=== PATIENT | female | born 1925 | race Caucasian/White ===

== ENCOUNTER 2016-07-08 19:29 | Inpatient (IN) | payer OTHER, BC ==
[~2016-07-08] VITALS: Ht 157.5 cm; Wt 42.9 kg
[~2016-07-08 19:29] MED LIST: ADULT LOW DOSE81 M1 PO; ARICEPT10 MG PO; Aricept PO; LASIX20 MG PO; LEXAPRO10 MG PO; Lovenox SC; MULTIVITAMIN1 EAC1 PO; Percocet 5/325,Endoc PO; THERAGRAN1 TABLET PO; Vicodin,Norco 5/325 PO; ZESTRIL,PRINIVI10 M1 PO; ZESTRIL,PRINIVI10 MG PO
[2016-07-08 22:07] LABS: HEMATOCRIT 28.5 % (36.0-46.0); MCH 32.2 PG (29.0-34.0); MCHC 31.2 G/DL (30.0-36.0); MCV 103.3 FL (83-99); MEAN PLAT.VOLUME 11.6 uM^3 (9.5-12.4); PLATELET COUNT 390 K/uL (156-360); RBC DIS.WIDTH-CV 26.1 % (11.8-14.6); RBC DIS.WIDTH-SD 90.8 % (39-53); RED BLOOD COUNT 2.76 M/uL (3.80-5.20); WHITE BLOOD COUNT 19.1 K/uL (4.1-10.2)
[2016-07-08 22:19] LABS: CHLORIDE 109 mEq/L (99-109); POTASSIUM 4.6 mEq/L (3.7-5.4); SODIUM 143 mEq/L (136-147)
[2016-07-08 22:20] LABS: GLUCOSE 172 mg/dL (70-99)
[2016-07-08 22:22] LABS: ANION GAP 8 MEQ/L (2-14)
[2016-07-08 22:24] LABS: GFR ESTIMATE (CALCULATED) > 59 mL/min/
[2016-07-08 22:25] LABS: UREA NITROGEN (BUN) 16 mg/dL (9-23)
[2016-07-08] MEDS ORDERED: LISINOPRIL5 MG PO (22:39)
[2016-07-08] MEDS ORDERED: LEXAPRO10 MG PO ×2 (22:40→22:41)
[2016-07-09] VITALS (11 sets, daily range): BP systolic 115–154; BP diastolic 47–70
[2016-07-09 05:14] LABS: ADD MIUA? YES; BILIRUBIN NEGATIVE; BLOOD MODERATE; COLOR AMBER ((YELLOW)); GLUCOSE (STRIP) NEGATIVE; KETONES NEGATIVE; LEUKOCYTES MODERATE; NITRITE POSITIVE; PROTEIN (STRIP) NEGATIVE; SPECIFIC GRAVITY 1.018 (1.000-1.030); UROBILINOGEN 0.2 MG/DL (0.2-1.0)
[2016-07-09 05:37] LABS: BACTERIA 2+ /HPF; EPITHELIAL CELLS RARE /HPF; MUCUS 2+ /LPF; RED BLOOD CELLS 20-30 /HPF (0-5); UCUL ADDED? YES; WHITE BLOOD CELLS TNTC /HPF (0-5)
[2016-07-09 06:53] LABS: HEMATOCRIT 28.6 % (36.0-46.0); MCH 31.3 PG (29.0-34.0); MCHC 30.4 G/DL (30.0-36.0); MCV 102.9 FL (83-99); MEAN PLAT.VOLUME 11.7 uM^3 (9.5-12.4); PLATELET COUNT 409 K/uL (156-360); RBC DIS.WIDTH-CV 26.6 % (11.8-14.6); RBC DIS.WIDTH-SD 96.1 % (39-53); RED BLOOD COUNT 2.78 M/uL (3.80-5.20)
[2016-07-09 06:54] LABS: WHITE BLOOD COUNT 12.8 K/uL (4.1-10.2)
[2016-07-09 07:01] LABS: METH RESISTANT S AUREUS PCR NEGATIVE (NEGATIVE)
[2016-07-09 07:02] LABS: PROBE CHECK PASS; SPECIMEN PROCESSING CONTROL PASS
[2016-07-10] VITALS (8 sets, daily range): BP systolic 102–131; BP diastolic 52–89
[2016-07-10 06:49] LABS: HEMATOCRIT 31.3 % (36.0-46.0)
[2016-07-10 06:51] LABS: HEM NON-PRINT COM 1 TRANSFUSED; MCV 93.7 FL (83-99)
[2016-07-10 06:58] LABS: ANION GAP 6 MEQ/L (2-14); CHLORIDE 107 MEQ/L (99-109); GFR ESTIMATE (CALCULATED) > 59 mL/min/; POTASSIUM 4.5 MEQ/L (3.7-5.4); SAMPLE HEMOLYSIS CHECK 0; SAMPLE ICTERIC CHECK 0; SAMPLE LIPEMIA CHECK 0; SODIUM 140 MEQ/L (136-147); UREA NITROGEN (BUN) 24 mg/dL (9-23)
[2016-07-10 07:15] LABS: GLUCOSE 91 mg/dL (70-99)
[2016-07-11 04:08] VITALS: BP 106/64
[2016-07-11 05:13] LABS: HEMATOCRIT 27.9 % (36.0-46.0); MCH 30.8 PG (29.0-34.0); MCHC 32.3 G/DL (30.0-36.0); MCV 95.5 FL (83-99); RBC DIS.WIDTH-CV 24.1 % (11.8-14.6); RBC DIS.WIDTH-SD 78.1 % (39-53); RED BLOOD COUNT 2.92 M/uL (3.80-5.20); WHITE BLOOD COUNT 10.8 K/uL (4.1-10.2)
[2016-07-11 05:50] LABS: ANION GAP 9 MEQ/L (2-14); CHLORIDE 107 MEQ/L (99-109); GFR ESTIMATE (CALCULATED) > 59 mL/min/; POTASSIUM 4.5 MEQ/L (3.7-5.4); SAMPLE HEMOLYSIS CHECK 0; SAMPLE ICTERIC CHECK 0; SAMPLE LIPEMIA CHECK 0; SODIUM 142 MEQ/L (136-147); UREA NITROGEN (BUN) 25 mg/dL (9-23)
[2016-07-11 05:51] LABS: GLUCOSE 165 mg/dL (70-99)
[2016-07-11 07:33] VITALS: BP 113/53
[2016-07-11 09:37] LABS: MEAN PLAT.VOLUME 11.8 uM^3 (9.5-12.4)
[2016-07-11 09:38] LABS: PLATELET COUNT 230 K/uL (156-360)
[2016-07-11 10:59] VITALS: BP 118/78
[2016-07-11 16:25] VITALS: BP 123/53
[2016-07-11 20:15] VITALS: BP 121/5; BP 121/58
[2016-07-11 23:50] VITALS: BP 112/60
[2016-07-12] VITALS (11 sets, daily range): BP systolic 74–134; BP diastolic 42–74
[2016-07-12 07:20] LABS: ANION GAP 5 MEQ/L (2-14); CHLORIDE 108 MEQ/L (99-109); GFR ESTIMATE (CALCULATED) > 59 mL/min/; POTASSIUM 4.2 MEQ/L (3.7-5.4); SAMPLE HEMOLYSIS CHECK 0; SAMPLE ICTERIC CHECK 0; SAMPLE LIPEMIA CHECK 0; SODIUM 139 MEQ/L (136-147); UREA NITROGEN (BUN) 17 mg/dL (9-23)
[2016-07-12 07:21] LABS: GLUCOSE 95 mg/dL (70-99)
[2016-07-12 07:26] LABS: HEMATOCRIT 22.9 % (36.0-46.0)
[2016-07-12 17:01] LABS: HEMATOCRIT 26.7 % (36.0-46.0); MCV 93.4 FL (83-99)
[2016-07-13 04:17] VITALS: BP 139/65
[2016-07-13 05:52] LABS: EOSINOPHIL (%) 2.3 % (0-5); EOSINOPHIL COUNT 0.1 K/uL (0-0.3); HEMATOCRIT 27.7 % (36.0-46.0); IMMATURE GRANULOCYTE (%) 0.2 % (0.0-0.7); LYMPHOCYTE COUNT 0.8 K/uL (1.0-2.8); MCH 31.3 PG (29.0-34.0); MCHC 33.2 G/DL (30.0-36.0); MCV 94.2 FL (83-99); MEAN PLAT.VOLUME 12.1 uM^3 (9.5-12.4); MONOCYTE COUNT 0.5 K/uL (0-0.8); NEUTROPHIL (%) 74.4 % (45-76); NEUTROPHIL COUNT 4.2 K/uL (1.8-6.4); PLATELET COUNT 187 K/uL (156-360); RBC DIS.WIDTH-CV 20.5 % (11.8-14.6); RBC DIS.WIDTH-SD 66.5 % (39-53); RED BLOOD COUNT 2.94 M/uL (3.80-5.20)
[2016-07-13 05:53] LABS: WHITE BLOOD COUNT 5.7 K/uL (4.1-10.2)
[2016-07-13 06:05] LABS: ANION GAP 3 MEQ/L (2-14); CHLORIDE 107 MEQ/L (99-109); GFR ESTIMATE (CALCULATED) > 59 mL/min/; GLUCOSE 85 mg/dL (70-99); MAGNESIUM 1.7 mg/dl (1.3-2.7); POTASSIUM 4.3 MEQ/L (3.7-5.4); SAMPLE HEMOLYSIS CHECK 0; SAMPLE ICTERIC CHECK 0; SAMPLE LIPEMIA CHECK 0; SODIUM 139 MEQ/L (136-147); UREA NITROGEN (BUN) 18 mg/dL (9-23)
[2016-07-13 07:56] VITALS: BP 140/65
[2016-07-13 11:15] VITALS: BP 156/68
[2016-07-13 16:09] VITALS: BP 139/61
[2016-07-14 05:41] LABS: HEMATOCRIT 28.6 % (36.0-46.0); MCHC 32.5 G/DL (30.0-36.0); MCV 95.3 FL (83-99); MEAN PLAT.VOLUME 12.2 uM^3 (9.5-12.4); PLATELET COUNT 213 K/uL (156-360); RBC DIS.WIDTH-CV 20.1 % (11.8-14.6); RBC DIS.WIDTH-SD 67.6 % (39-53); WHITE BLOOD COUNT 5.4 K/uL (4.1-10.2)
[2016-07-14 06:02] LABS: ANION GAP 5 MEQ/L (2-14); CHLORIDE 106 MEQ/L (99-109); GFR ESTIMATE (CALCULATED) > 59 mL/min/; GLUCOSE 81 mg/dL (70-99); POTASSIUM 4.2 MEQ/L (3.7-5.4); SAMPLE HEMOLYSIS CHECK 0; SAMPLE ICTERIC CHECK 0; SAMPLE LIPEMIA CHECK 0; SODIUM 139 MEQ/L (136-147); UREA NITROGEN (BUN) 15 mg/dL (9-23)
[2016-07-14 08:23] VITALS: BP 148/63
[2016-07-14] MEDS ORDERED: LOVENOX30 MG/0.3 SC (11:20)
== END 2016-07-14 13:30 | DRG 481 ==
LOC: EME → EDBD 19:29 → 3EAST 07-09 02:25 → EDOF 07-09 02:25 → 3EAST 07-09 03:14
PROVIDERS: Emergency Medicine; Hospitalist; Internal Medicine; Orthopaedic Surgery; Physician Assistant
PROC: 0QH936Z Insertion of Intramedullary Internal Fixation Device into Left Femoral Shaft, Percutaneous Approach (ICD-10-PCS; principal; 2016-07-10)
PROC: 30233N1 Transfusion of Nonautologous Red Blood Cells into Peripheral Vein, Percutaneous Approach (ICD-10-PCS; 2016-07-12)
DX: S72.332A Displaced oblique fracture of shaft of left femur, initial encounter for closed fracture (principal); N39.0 Urinary tract infection, site not specified; K50.90 Crohn's disease, unspecified, without complications; D62 Acute posthemorrhagic anemia; F03.90 Unspecified dementia, unspecified severity, without behavioral disturbance, psychotic disturbance, mood disturbance, and anxiety; Y92.003 Bedroom of unspecified non-institutional (private) residence as the place of occurrence of the external cause; Y93.F9 Activity, other caregiving; I10 Essential (primary) hypertension; Z86.73 Personal history of transient ischemic attack (TIA), and cerebral infarction without residual deficits; X50.1XXA Overexertion from prolonged static or awkward postures, initial encounter; Z74.01 Bed confinement status; D46.9 Myelodysplastic syndrome, unspecified
CPT/HCPCS: 71010; 73552; 76000; 80048; 81003; 82306; 83735; 85014; 85018; 85025; 85027; 85730; 86850; 86870; 86900; 86901; 86905; 86920; 87086; 87641; 99281; 99285; C1713; J0330; J0690; J0696; J1170; J1644; J1650; J2270; J2405; J3010; J7030; J7050; J7120; P9016

== ENCOUNTER 2016-08-27 18:17 | Emergency (ER) | payer OTHER, BC ==
[~2016-08-27] VITALS: Ht 157.5 cm; Wt 44.5 kg
[~2016-08-27 18:17] MED LIST changes: +LISINOPRIL5 MG PO; +LOVENOX30 MG/0.3 SC
[2016-08-27 19:32] LABS: HEMATOCRIT 25.7 % (36.0-46.0); MCH 31.2 PG (29.0-34.0); MCHC 32.3 G/DL (30.0-36.0); MEAN PLAT.VOLUME 12.6 uM^3 (9.5-12.4); RBC DIS.WIDTH-CV 24.6 % (11.8-14.6); RBC DIS.WIDTH-SD 86.8 % (39-53); RED BLOOD COUNT 2.66 M/uL (3.80-5.20)
[2016-08-27 19:35] LABS: EOSINOPHIL (%) 1.9 % (0-5); EOSINOPHIL COUNT 0.1 K/uL (0-0.3); IMMATURE GRANULOCYTE (%) 0.2 % (0.0-0.7); INSTRUMENT ABS NEUTROPHIL CT 2.5 K/uL; LYMPHOCYTE COUNT 1.2 K/uL (1.0-2.8); MONOCYTE (%) 9.2 % (3-12); MONOCYTE COUNT 0.4 K/uL (0-0.8); NEUTROPHIL (%) 59.6 % (45-76); NEUTROPHIL COUNT 2.5 K/uL (1.8-6.4)
[2016-08-27 19:43] LABS: CHLORIDE 106 mEq/L (99-109); POTASSIUM 4.7 mEq/L (3.7-5.4); SODIUM 138 mEq/L (136-147)
[2016-08-27 19:45] LABS: GLUCOSE 96 mg/dL (70-99)
[2016-08-27 19:46] LABS: ANION GAP 6 MEQ/L (2-14)
[2016-08-27 19:47] LABS: TOTAL BILIRUBIN 0.6 mg/dL (0.0-1.0)
[2016-08-27 19:48] LABS: ALKALINE PHOSPHATASE 89 IU/L (3-129); MCV 96.6 FL (83-99); PLATELET COUNT 300 K/uL (156-360); WHITE BLOOD COUNT 4.1 K/uL (4.1-10.2)
[2016-08-27 19:49] LABS: GFR ESTIMATE (CALCULATED) > 59 mL/min/
[2016-08-27 19:50] LABS: UREA NITROGEN (BUN) 19 mg/dL (9-23)
[2016-08-27 23:40] VITALS: BP 121/73
== END 2016-08-27 23:41 | disposition home or self-care (01) ==
LOC: EME → EDBD 18:17 → EME 23:41
PROVIDERS: Emergency Medicine
DX: D46.9 Myelodysplastic syndrome, unspecified (principal); D63.8 Anemia in other chronic diseases classified elsewhere; F03.90 Unspecified dementia, unspecified severity, without behavioral disturbance, psychotic disturbance, mood disturbance, and anxiety; I10 Essential (primary) hypertension
CPT/HCPCS: 80053; 85025; 86900; 86901; 99281; 99285